=== PATIENT | male | born 1965 | race Caucasian/White ===

== ENCOUNTER → 2020-04-19 13:12 | Outpatient (CLI) | payer MEDICAID, SELFPAY ==
[2020-04-21 12:52] LABS: COVID19 Sendout Not Detected
== END ==
PROVIDERS: PCP Physician Assistant; Visit Provider Physician Assistant
DX: Z03.818 Encounter for observation for suspected exposure to other biological agents ruled out (principal)
CPT/HCPCS: 87635

== ENCOUNTER 2020-04-22 10:24 | Day surgery (SDC) | payer MEDICAID, SELFPAY ==
--- NOTE | 2020-04-22 | PATH_ITS ---
[facility] Accession Number: [id number] . 01 Material submitted: . rectum - RECTUM . 02 Diagnosis: Rectum, Biopsy: Colorectal mucosa with features of mucosal prolapse. Negative for active or microscopic colitis. Negative for granulomata, dysplasia or malignancy. MRV 04/24/2020 1018 Local . 02 Electronically signed: . Carlos Hood MD, PhD, Pathologist NPI- [id number] . 01 Gross description: . RECTUM: Received in formalin are 3 fragment(s) of johnson, soft tissue measuring 0.3 x 0.3 x 0.2 cm to 0.2 x 0.2 x 0.1 cm submitted entirely in 1 cassette(s) /QBJ 04/23/2020 0725 Local . 02 Pathologist provided ICD-10: R10.9, K62.3 . 02 CPT . 619520 Performed at: 01 [facility] [address], [place], [place] [id number] MD Buddy De Dios MD Phone: [phone] Performed at: [address] [facility] [place] [address] [place], [place] [id number] MD Tomasa Bridges MD Phone: [phone]
[2020-04-22 10:43] VITALS: BMI 30.2
[2020-04-22] MEDS: LACTATED RINGERS 1,000 ML 200 ML IV (10:52)
--- NOTE | 2020-04-22 11:40 | PM.PREOP ---
Pre-operative Note COVID-19 COVID-19 status: Negative Interval Note History & Physical reviewed/Exam performed by Physician: Yes Changes to H&P: No
[2020-04-22] MEDS: MIDAZOLAM 5 MG/5 ML VIAL IV (11:48)
[2020-04-22] MEDS: fentaNYL 250 MCG/5 ML INJ IV (11:50)
--- NOTE | 2020-04-22 12:10 | PM.OP.ENDO ---
Operative Date/Time/Diagnoses Date of procedure: 04/22/20 Time of procedure: 12:10 Pre-op diagnosis: screening colonoscopy Post-op diagnosis: same Procedure & Clinicians Study performed: colonoscopy Same procedure as scheduled: Yes Indications: 54-year-old man no prior colonoscopy presents with diarrhea hematochezia weight loss Surgeon: Mustapha Small Procedure Notes SCOAP/Timeout: Performed Procedure in detail: Patient placed in left lateral recumbent position. Time out was performed. Procedural sedation was administered with Versed and Fentanyl. Examination began with a thorough inspection of the perianal area there was no evidence of fissures, fistulae, external hemorrhoids or cutaneous malignancy. The colonoscopy scope was then placed into the rectum the the lumen was insufflated with air. The scope was carefully advanced forward. Ultimately the cecum was intubated and confirmed by identification of the ileocecal valve, the appendiceal orifice and the confluence of the taenia. The scope was then slowly withdrawn examining colon thoroughly in all directions. In the rectum the rectal columns were identified and retroflexion of the scope was performed for inspection of the distal rectum and anal canal. The colonoscopy was notable for the followin. Quality of the preparation-fair 2. No masses polyps 3. Mild proctitis of the distal rectum. Multiple biopsies were taken using the biopsy forceps. Hemostasis was observed. Scope withdrawal time: 12 Sedation minutes: 27 Findings: colitis (of distal rectum) Specimen(s): other (rectum) Complications: none Impression: Proctitis Post-procedure Recommendations: Will call with biopsy results Disposition: same day surgery
[2020-04-22 12:13] VITALS: BP 131/81; PULSE 75; RESP 16; TEMP 36.6; O2SAT 96
[2020-04-22 12:18] VITALS: BP 119/76; PULSE 88; RESP 14; O2SAT 95
[2020-04-22 12:23] VITALS: BP 138/97; PULSE 79; RESP 17; O2SAT 97
[2020-04-22 12:28] VITALS: BP 148/116; PULSE 77; RESP 16; O2SAT 96
[2020-04-22 12:32] VITALS: BP 148/99; PULSE 81; RESP 13; TEMP 36.8; O2SAT 96
== END 2020-04-22 12:55 | disposition home or self-care (01) ==
PROVIDERS: PCP Physician Assistant; Referring Provider Physician Assistant; Visit Provider Surgery
PROC: 0DJD8ZZ Inspection of Lower Intestinal Tract, Via Natural or Artificial Opening Endoscopic (ICD-10-PCS; CPT 45378; principal; 2020-04-22 11:30)
DX: K62.89 Other specified diseases of anus and rectum (principal); K62.3 Rectal prolapse; R63.4 Abnormal weight loss; J44.9 Chronic obstructive pulmonary disease, unspecified; F17.210 Nicotine dependence, cigarettes, uncomplicated
CPT/HCPCS: 45380; 99152; J2250; J3010

== ENCOUNTER 2020-05-26 12:18 | Emergency (ER) | payer MEDICAID, SELFPAY ==
[2020-05-26 12:30] VITALS: BP 174/107; PULSE 93; RESP 20; O2SAT 97
[2020-05-26] MEDS: KETOROLAC 60 MG/2 ML VIAL 30 MG IM (13:20)
--- NOTE | 2020-05-26 13:28 | PC.NURSE ---
pt due to have tooth extraction on L side 05/30/2020, here c/o unrelievable pain and swelling on L side of face
[2020-05-26 13:40] VITALS: BP 160/96; PULSE 82; RESP 18; O2SAT 97
--- NOTE | 2020-05-26 14:10 | ED.DENTAL ---
HPI - Dental/Oral <NHAN Kwok - Last Filed: 05/26/20 14:16> General Chief complaint: Dental/Oral Stated complaint: Left Sided Facial Pain Time Seen by Provider: 05/26/20 12:59 Source: patient Mode of arrival: Ambulatory Limitations: no limitations History of Present Illness HPI Narrative: The patient is a 54-year-old male current smoker with history of dental abscess who presents with a chief complaint of pain related to dental abscess. He denies any fevers nausea vomiting or diarrhea. He states he has been using Tylenol for pain, which is not cutting it and he is requesting stronger pain medicine for this. He states he is scheduled to have his tooth pulled later this week. He has been on clindamycin for the past few days. Related Data Home Medications Medication Instructions Recorded Confirmed metoprolol succinate 25 mg capsule 25 mg PO DAILY 04/17/20 04/22/20 sprinkle, ext. release 24 hr Previous Rx's Medication Instructions Recorded hydrocodone-acetaminophen [Franklin] 1 tab PO Q4-6H PRN #12 tab 05/26/20 ketorolac 10 mg PO TID PRN #14 tab 05/26/20 Allergies Allergy/AdvReac Type Severity Reaction Status Date / Time No Known Drug Allergies Allergy Verified 04/22/20 10:38 Review of Systems <PIYUSH Kwok - Last Filed: 05/26/20 14:16> Review of Systems Narrative: GENERAL: Denies chills, fatigue, malaise, fever, sweats. HEENT: See HPI RESPIRATORY: Denies dyspnea, cough, wheezing, hemoptysis, sputum. CARDIOVASCULAR: Denies chest pain, palpitations, orthopnea, edema, GASTROINTESTINAL: Denies nausea, vomiting, abdominal pain, diarrhea, constipation, melena. : Denies dysuria, frequency, incontinence, hematuria, urinary retention. MUSCULOSKELETAL: denies weakness, joint pain, or bony pain SKIN: Denies rash, skin lesions, or other NEUROLOGIC: Denies weakness, headache, numbness, change in speech, confusion, seizures, incoordination. PSYCHIATRIC: No concerning psychosocial issues. 12 point review of systems is negative except for those stated above Patient History <NHAN Kwok - Last Filed: 05/26/20 14:16> Medical History Afib (Acute) Anxiety (Acute) Asthma (Acute) COPD (chronic obstructive pulmonary disease) (Acute) Cough (Acute) Seizure (Acute) Suspected sleep apnea (Acute) Surgical History Hx of Achilles tendon repair (Acute) Hx of neck surgery (Acute) Social History marital status: unknown household members: none Smoking Status: Current every day smoker alcohol intake: current substance use type: does not use Smoking Status: Current every day smoker alcohol intake frequency: a few times a week Substance Use Type: does not use Exam <NHAN Kwok - Last Filed: 05/26/20 14:16> Narrative Exam Narrative: GENERAL: This is a well-nourished, well-developed patient, in no acute distress HEAD: Atraumatic. Normocephalic. No temporal or scalp tenderness. EYES: Pupils equal round and reactive. Extraocular motions intact. No scleral icterus. No injection or drainage. ENT: Nose without bleeding, purulent drainage or septal hematoma. Throat without erythema, tonsillar hypertrophy or exudate. Uvula midline. Airway patent. Palpable dental abscess on left side middle upper molar. Poor dentition noted. NECK: Trachea midline. No JVD or lymphadenopathy. Supple, nontender, no meningeal signs. CARDIOVASCULAR: Regular rate and rhythm RESPIRATORY: Clear to auscultation. Breath sounds equal bilaterally. No wheezes, rales, or rhonchi. No cough. No increased respiratory effort. No accessory muscle use. GASTROINTESTINAL: Abdomen soft, non-tender, nondistended. No hepato-splenomegaly, or palpable masses. No guarding. Active bowel sounds all 4 quadrants. EXTREMITIES: No clubbing, cyanosis, or edema. No joint tenderness, effusion, or edema noted. BACK: Nontender without deformity or crepitance. No flank tenderness. NEURO: AOx3. SKIN: No rash or erythema on visible skin. No overlying erythema or pustules noted Initial Vital Signs Initial Vital Signs: Vital Signs Pulse Rate 93 H 05/26/20 12:30 Respiratory Rate 20 05/26/20 12:30 Blood Pressure 174/107 H 05/26/20 12:30 Pulse Oximetry 97 05/26/20 12:30 <Janeth Merrill DO - Last Filed: 05/26/20 17:09> Initial Vital Signs Initial Vital Signs: Vital Signs Pulse Rate 93 H 05/26/20 12:30 Respiratory Rate 20 05/26/20 12:30 Blood Pressure 174/107 H 05/26/20 12:30 Pulse Oximetry 97 05/26/20 12:30 Scores <NHAN Kwok - Last Filed: 05/26/20 14:16> GCS Wendy coma scale eye opening: Spontaneous Lima coma scale verbal response: Orientated Lima coma scale motor response: Obey commands Lima coma scale total score: 15 Course <NHAN Kwok - Last Filed: 05/26/20 14:16> Orders Ordered: Discontinued Medications Ketorolac Tromethamine (Toradol) 30 mg IM NOW ONE Stop: 05/26/20 13:17 Last Admin: 05/26/20 13:20 Dose: 30 mg Documented by: MMINOR Vital Signs Vital signs: Vital Signs - 8 hr 05/26/20 12:30 05/26/20 13:40 Pulse Rate 93 H 82 Respiratory Rate 20 18 Blood Pressure 174/107 H 160/96 H Pulse Oximetry 97 97 <Janeth Merrill DO - Last Filed: 05/26/20 17:09> Orders Ordered: Discontinued Medications Ketorolac Tromethamine (Toradol) 30 mg IM NOW ONE Stop: 05/26/20 13:17 Last Admin: 05/26/20 13:20 Dose: 30 mg Documented by: MMINOR Vital Signs Vital signs: Vital Signs - 8 hr 05/26/20 12:30 05/26/20 13:40 Pulse Rate 93 H 82 Respiratory Rate 20 18 Blood Pressure 174/107 H 160/96 H Pulse Oximetry 97 97 MDM - Dental/Oral <NHAN Kwok - Last Filed: 05/26/20 14:16> MDM Narrative Medical decision making narrative: The patient is a 54-year-old male current smoker presents with a chief complaint of continued dental pain with his antibiotic therapy. He states he has been able to sleep since his clindamycin started 3 days ago. Denies any signs of systemic illness, is taking his medication appropriately it is requesting pain medicine. He was given Toradol in the emergency department I sent a prescription of this in. He is also requesting ?20 or so Vicodin. I discussed that I cannot give a prescription that long in the emergency department, but I am willing to give a small prescription to help get him through the next few days. I consulted [facility] prescription database prior to prescribing and there was no controlled substance prescriptions for the patient for the past year. Encouraged follow-up with dentist in the next few days as well as primary care provider. Patient was given information regarding constipation, discussed taking Toradol food and not combining with any other NSAIDs. Patient has no questions or concerns upon discharge and states understanding return precautions as well as follow-up care. Discharge Plan Departure Patient Disposition: Home Clinical Impression: Dental abscess Discharge Date/Time: 05/26/20 13:41 Instructions: DI for Dental Pain Activity Restrictions/Additional Instructions: Thank you for trusting us with your care today. Please continue taking the antibiotic that was prescribed by an outside provider. Please follow-up with her dentist and her primary care provider I sent 2 pain medication prescriptions to [facility] in [place] I have given you a prescription of Toradol. This is an NSAID. Do not combine it with other NSAIDs such as Aleve or ibuprofen. I suggest taking it with some food, as it can irritate your stomach. I have given you a prescription of a narcotic for pain. Be aware that this can be constipating and sedating. I encouraged taking with a stool softener, pushing fluids and fiber. Do not take and drive, operate heavy machinery, etc. Do not combine it with any other sedating substances such as alcohol. Please come back to emergency department for any acute concerns such as high fevers etcetera Prescriptions: New ketorolac 10 mg tablet 10 mg PO TID PRN (Reason: pain) Qty: 14 RF: 0 hydrocodone-acetaminophen [Franklin] 5-325 mg tablet 1 tab PO Q4-6H PRN (Reason: pain) Qty: 12 RF: 0 No Action metoprolol succinate 25 mg capsule,sprinkle,ER 24hr 25 mg PO DAILY RF: 0 Referrals: Oralia Carney PA-C [Primary Care Provider] - <Janeth Merrill DO - Last Filed: 05/26/20 17:09> Cosign ED Attending Cosignature Attestation: I was immediately available in the department for consultation. Documentation has been reviewed. I agree with assessment and plan.
== END 2020-05-26 13:41 | disposition home or self-care (01) ==
PROVIDERS: Emergency Provider Nurse Practitioner Family; PCP Physician Assistant
DX: K04.7 Periapical abscess without sinus (principal)
CPT/HCPCS: 96372; 99281; 99283; J1885

== ENCOUNTER 2020-09-23 13:48 | Emergency (ER) | payer MEDICAID, SELFPAY ==
[2020-09-23] VITALS (28 sets, daily range): BP systolic 144–189; BP diastolic 84–117; PULSE 81–152; RESP 12–34; TEMP 36.9; O2SAT 95–100; BMI 32.3
--- NOTE | 2020-09-23 14:04 | ED_ITS ---
HPI - Arrhythmia/Palpitations General Chief Complaint: Arrhythmia/Palpitations Stated Complaint: DIZZINESS, HEART PALPITATIONS Time Seen by Provider: 09/23/20 14:02 Source: patient Mode of arrival: Family Vehicle Limitations: no limitations History of Present Illness HPI narrative: Patient is a 55-year-old male with history of alcohol abuse and paroxysmal atrial fibrillation presenting today with sudden onset of p alpitations or 8:00 a.m.. He actually does take metoprolol twice a day for hypertension. He took a dose this morning around 530 and then another half a dose about 2 hours ago and continues to feel palpitations. He denies any dizziness lightheadedness shortness of with exertion or chest pain. MD complaint: rapid heart beat and heart racing Related Data Home Medications Medication Instructions Recorded Confirmed metoprolol succinate 50 mg PO QAM 09/23/20 09/23/20 Allergies Allergy/AdvReac Type Severity Reaction Status Date / Time No Known Drug Allergies Allergy Verified 09/23/20 14:04 Review of Systems Review of Systems Narrative: GENERAL: Denies chills, fatigue, malaise, fever, sweats, travel HEENT: Denies sinus pain, ear pain, sore throat, difficulty swallowing, neck pain RESPIRATORY: Denies dyspnea, cough, wheezing, hemoptysis, sputum. CARDIOVASCULAR: See HPI GASTROINTESTINAL: Denies nausea, vomiting, abdominal pain, diarrhea, constipation, melena. : Denies dysuria, frequency, incontinence, hematuria, urinary retention, flank pain. MUSCULOSKELETAL: Denies weakness, joint pain, or bony pain SKIN: No rash, no erythema, no pruritus NEUROLOGIC: Denies weakness, dizziness, headache, numbness, change in speech, confusion PSYCHIATRIC: No concerning psychosocial issues. 12 point review of systems is negative except for those stated above and HPI Patient History Medical History (Updated 09/23/20 @ 16:26 by Janeth Merrill DO) Afib Anxiety Asthma COPD (chronic obstructive pulmonary disease) Cough Seizure Suspected sleep apnea Surgical History Hx of Achilles tendon repair Hx of neck surgery Social History marital status: unknown household members: none Smoking Status: Current every day smoker alcohol intake: current substance use type: does not use Smoking Status: Current every day smoker tobacco type: cigarettes alcohol intake frequency: a few times a week Substance Use Type: does not use Exam Initial Vital Signs Initial Vital Signs: Vital Signs Temperature 98.4 F 09/23/20 13:52 Pulse Rate 152 H 09/23/20 13:52 Respiratory Rate 22 09/23/20 13:52 Blood Pressure 189/108 H 09/23/20 13:52 Pulse Oximetry 100 09/23/20 13:52 GENERAL: Alert pleasant 55-year-old male and in no acute distress. HEENT: Head atraumatic,EOMI, pupils reactive, face symmetric, moist mucous membranes CARDIOVASCULAR: Irregularly irregular tachycardic RESPIRATORY: Breath sounds equal bilaterally, no wheezes rales or rhonchi. ABDOMEN: Soft, nontender. Normoactive bowel sounds all 4 quadrants. No guarding or rebound. EXTREMITIES: Normal range of motion, no clubbing or edema. Neurovascularly intact NEUROLOGICAL: Alert and oriented x4.Normal gait and speech. SKIN: Warm, dry, no laceration, no petechiae, no rashes or lesions. Procedures Cardioversion Consent Signed: Yes Stability: Stable Number of attempts (shocks): 1 Joules used: 150 Cardiac rhythm post-cardioversion: sinus rhythm Procedural Sedation Consent signed: Yes Time out performed: Yes Indication: cardioversion ASA Class: III Mallampati Airway Classification: Class II Preparation: youth nutritional monitor applied, pulse oximeter, capnometry used and supplemental O2 applied IV Etomidate dose (mg): 10 Intraservice time/total sedation time (min): 12 ED Sedation Level: Moderate (Concious) Patient Tolerated Procedure: Well Additional Comments: Received morphine for pain afterwards Scores CHADS-VASc Congestive heart failure: no Hypertension: yes Age 75 years or older: no Diabetes mellitus: no Stroke, TIA, or TE: no Vascular disease: no Age 65 to 74 years: no Sex category (female): Male CHADS-VASc Score: 1 Course Orders Ordered: ED Orders 09/23/20 13:45 Complete Blood Count AUTO DIFF Stat 09/23/20 14:03 XR chest 1V Stat EKG-12 Lead Stat 09/23/20 14:07 COVID19 Stat 09/23/20 14:25 BNP [NT-proBNP (BNP-Adult 18+)] Stat Comprehensive Metabolic Panel Stat Ethanol (ETOH) Stat Lipase Stat Magnesium Stat Partial Thromboplastin Time Stat Prothrombin Time INR Stat Troponin & CK Cardiac Panel Stat Discontinued Medications Diltiazem HCl (Diltiazem 5 Mg/Ml Sdv) 10 mg IV NOW ONE Stop: 09/23/20 14:24 Last Admin: 09/23/20 14:34 Dose: 10 mg Documented by: TC Etomidate (Etomidate 2 Mg/Ml 10 Ml Vial) 10 mg IV NOW ONE Stop: 09/23/20 14:40 Last Admin: 09/23/20 15:10 Dose: 10 mg Documented by: TC Sodium Chloride (Normal Saline 0.9%) 1,000 mls @ 125 mls/hr IV BOLUS ONE Stop: 09/23/20 22:27 Last Admin: 09/23/20 14:34 Dose: 125 mls/hr Documented by: TC Vital Signs Vital signs: Vital Signs - 8 hr 09/23/20 13:52 09/23/20 13:54 09/23/20 13:57 Temperature 98.4 F Pulse Rate 152 H 151 H 140 H Respiratory Rate 22 16 15 Blood Pressure 189/108 H 189/108 H Blood Pressure [Left Arm] Pulse Oximetry 100 99 100 09/23/20 14:00 09/23/20 14:10 09/23/20 14:11 Temperature Pulse Rate 144 H 148 H 145 H Respiratory Rate 16 19 18 Blood Pressure 165/104 H 163/97 H Blood Pressure [Left Arm] Pulse Oximetry 100 98 99 09/23/20 14:20 09/23/20 14:21 09/23/20 14:29 Temperature Pulse Rate 127 H 132 H 144 H Respiratory Rate 13 15 22 Blood Pressure 168/117 H Blood Pressure [Left Arm] Pulse Oximetry 97 97 99 09/23/20 14:30 09/23/20 14:40 09/23/20 14:41 Temperature Pulse Rate 146 H 115 H 111 H Respiratory Rate 15 20 17 Blood Pressure 169/117 H 160/96 H Blood Pressure [Left Arm] Pulse Oximetry 97 98 97 09/23/20 14:49 09/23/20 14:50 09/23/20 15:00 Temperature Pulse Rate 102 H 100 H 113 H Respiratory Rate 14 14 13 Blood Pressure 157/94 H 155/84 H Blood Pressure [Left Arm] Pulse Oximetry 97 96 98 09/23/20 15:10 09/23/20 15:17 09/23/20 15:19 Temperature Pulse Rate 123 H 93 H 113 H Respiratory Rate 15 18 13 Blood Pressure 165/109 H 178/105 H Blood Pressure [Left Arm] 155/84 H Pulse Oximetry 97 97 98 09/23/20 15:20 09/23/20 15:22 09/23/20 15:30 Temperature Pulse Rate 85 84 83 Respiratory Rate 16 20 13 Blood Pressure 162/105 H 166/106 H Blood Pressure [Left Arm] Pulse Oximetry 98 97 09/23/20 15:40 09/23/20 15:50 09/23/20 16:00 Temperature Pulse Rate 81 85 86 Respiratory Rate 16 12 19 Blood Pressure 163/100 H 155/97 H 149/94 H Blood Pressure [Left Arm] Pulse Oximetry 96 95 95 09/23/20 16:10 09/23/20 16:20 09/23/20 16:30 Temperature Pulse Rate 87 86 94 H Respiratory Rate 19 18 34 H Blood Pressure 144/90 H 144/87 H Blood Pressure [Left Arm] Pulse Oximetry 95 96 97 09/23/20 16:31 Temperature Pulse Rate 95 H Respiratory Rate Blood Pressure 171/112 H Blood Pressure [Left Arm] Pulse Oximetry 96 MDM - Arrhythmia/Palpitations Lab Data Attestation: I reviewed the patient's lab results. Result diagrams: 09/23/20 13:45 09/23/20 14:25 Labs: Lab Results 09/23/20 09/23/20 09/23/20 Range/Units 13:45 14:07 14:25 WBC 9.3 (4.5-11.0) X10^3/uL RBC 5.74 (4.5-5.9) X10^6/uL Hgb 19.0 H (13.5-17.5) g/dL Hct 54.9 H (41-53) % MCV 95.6 (80-100) fL MCH 33.0 (26-34) PG MCHC 34.5 (30-36) % RDW 14.4 (11.6-14.8) % Plt Count 176 (150-400) X10^3/uL Neut % (Auto) 47.1 L (50-75) % Lymph % (Auto) 35.9 (25-40) % [place] % (Auto) 13.9 (3-14) % Eos % (Auto) 2.1 (2-4) % Baso % (Auto) 1.0 (0-2) % Neut # (Auto) 4400 (1395-0550) /uL Lymph # (Auto) 3300 (2158-4972) /uL [place] # (Auto) 1300 H (0-900) /uL Eos # (Auto) 200 (0-450) /uL Baso # (Auto) 100 (0-100) /uL PT 12.4 (10.1-12.7) SECONDS INR 1.1 (0.9-1.3) APTT 39 H (26.4-36.2) SECONDS Sodium (137-145) mmol/L Potassium (3.4-5.1) mmol/L Chloride (98-107) mmol/L Carbon Dioxide (22-32) mmol/L BUN (9-20) mg/dL Creatinine (0.66-1.25) mg/dL Estimated GFR (>60) mL/min BUN/Creatinine Ratio (6-22) Glucose (70-100) mg/dL Calcium (8.4-10.2) mg/dL Magnesium (1.6-2.3) mg/dL Total Bilirubin (0.2-1.3) mg/dL AST (17-59) IU/L ALT (<50) IU/L Alkaline Phosphatase (38-126) U/L Total Creatine Kinase (55-170) U/L CK-MB (CK-2) (<2.37) ng/mL CK-MB (CK-2) Rel Index (1.5-5.0) % Troponin I (0.01-0.034) ng/mL NT-Pro-B Natriuret Pep (<125) pg/mL Total Protein (6.3-8.2) g/dL Albumin (3.5-5.0) g/dL Globulin (1.7-4.1) g/dL Albumin/Globulin Ratio (1.0-2.8) Lipase (23-300) U/L Ethyl Alcohol ( - 10) mg/dL SARS-CoV-2 (PCR) Negative (Negative) 09/23/20 09/23/20 Range/Units 14:25 14:25 WBC (4.5-11.0) X10^3/uL RBC (4.5-5.9) X10^6/uL Hgb (13.5-17.5) g/dL Hct (41-53) % MCV (80-100) fL MCH (26-34) PG MCHC (30-36) % RDW (11.6-14.8) % Plt Count (150-400) X10^3/uL Neut % (Auto) (50-75) % Lymph % (Auto) (25-40) % [place] % (Auto) (3-14) % Eos % (Auto) (2-4) % Baso % (Auto) (0-2) % Neut # (Auto) (7924-1217) /uL Lymph # (Auto) (3353-0880) /uL [place] # (Auto) (0-900) /uL Eos # (Auto) (0-450) /uL Baso # (Auto) (0-100) /uL PT (10.1-12.7) SECONDS INR (0.9-1.3) APTT (26.4-36.2) SECONDS Sodium 138 (137-145) mmol/L Potassium 4.1 (3.4-5.1) mmol/L Chloride 103 (98-107) mmol/L Carbon Dioxide 24 (22-32) mmol/L BUN 10 (9-20) mg/dL Creatinine 0.82 (0.66-1.25) mg/dL Estimated GFR > 60.0 (>60) mL/min BUN/Creatinine Ratio 12.2 (6-22) Glucose 106 H (70-100) mg/dL Calcium 9.7 (8.4-10.2) mg/dL Magnesium 1.7 (1.6-2.3) mg/dL Total Bilirubin 0.7 (0.2-1.3) mg/dL AST 66 H (17-59) IU/L ALT 101 H (<50) IU/L Alkaline Phosphatase 61 (38-126) U/L Total Creatine Kinase 224 H (55-170) U/L CK-MB (CK-2) 1.79 (<2.37) ng/mL CK-MB (CK-2) Rel Index 0.8 L (1.5-5.0) % Troponin I < 0.012 (0.01-0.034) ng/mL NT-Pro-B Natriuret Pep 279 H (<125) pg/mL Total Protein 8.3 H (6.3-8.2) g/dL Albumin 4.9 (3.5-5.0) g/dL Globulin 3.4 (1.7-4.1) g/dL Albumin/Globulin Ratio 1.4 (1.0-2.8) Lipase 71 (23-300) U/L Ethyl Alcohol 43 H ( - 10) mg/dL SARS-CoV-2 (PCR) (Negative) Imaging Data Chest x-ray: Radiologist's Impresson: PROCEDURE: XR CHEST 1V INDICATIONS: chest pain TECHNIQUE: One view of the chest was acquired. COMPARISON: None. FINDINGS: Surgical changes and devices: None. Lungs and pleura: Lungs are clear. No pleural effusions or pneumothorax. Mediastinum: Mediastinal contours appear normal. Heart size is mildly prominent. Bones and chest wall: No suspicious bony lesions. Overlying soft tissues appear unremarkable. IMPRESSION: No acute pulmonary process. Dictated by: Avelina Bro M.D. on 09/23/2020 at 14:31 ECG Data Attestation: I personally reviewed and interpreted this ECG as follows: Interpretation: Atrial fibrillation rate [address] changes her T-wave inversions EKG 2. Normal sinus rhythm rate [address] changes MDM Narrative Medical decision making narrative: Patient does not remember procedure is remains in normal sinus rhythm and has a ride home. Recommend aspirin 81 mg once a day. Also discussed with him decreasing his drinking habits. He states he is are ready been decreasing and would like to eventually stop. Discharge Plan Departure Patient Disposition: Home Clinical Impression: Atrial fibrillation Qualifiers: Atrial fibrillation type: paroxysmal Qualified Code(s): I48.0 - Paroxysmal atrial fibrillation Instructions: DI for Atrial Fibrillation Activity Restrictions/Additional Instructions: *You have been diagnosed with paroxysmal atrial fibrillation *What to do: At this time I do believe that alcohol is related to your atrial fibrillation. I recommend that he cut back slowly, the do not go into withdrawals. *Continue to take medications as directed Aspirin 81 mg once daily Continue metoprolol *Follow up with your primary care provider in 2-3 days *Return to ER if you should have chest pain shortness of breath palpitations dizziness lightheadedness or any new, worsening or concerning symptoms Prescriptions: No Action metoprolol succinate 50 mg tablet extended release 24 hr 50 mg PO QAM RF: 0 Referrals: Oralia Carney PA-C [Primary Care Provider] -
[2020-09-23 14:11] LABS: Add Manual Diff / Slide Review NO; Basophils Absolute Auto 100 /uL (0-100); Eosinophils Absolute Auto 200 /uL (0-450); Eosinophils Percent Auto 2.1 % (2-4); Hematocrit 54.9 % (41-53); Lymphocytes Absolute Auto 3300 /uL (1100-4500); Lymphocytes Percent Auto 35.9 % (25-40); Mean Corpuscular HGB Conc 34.5 % (30-36); Mean Corpuscular Volume 95.6 fL (80-100); Monocytes Absolute Auto 1300 /uL (0-900); Monocytes Percent Auto 13.9 % (3-14); Neutrophils Absolute Auto 4400 /uL (1500-7000); Neutrophils Percent Auto 47.1 % (50-75); Platelet Count 176 X10^3/uL (150-400); Red Blood Cell Count 5.74 X10^6/uL (4.5-5.9); Red Cell Distribution Width 14.4 % (11.6-14.8); White Blood Cell Count 9.3 X10^3/uL (4.5-11.0)
[2020-09-23] MEDS: dilTIAZem 5 MG/ML SDV 10 MG IV (14:34)
[2020-09-23] MEDS: SODIUM CHLORIDE 0.9% 1,000 ML 125 ML IV (14:34)
[2020-09-23 14:35] LABS: COVID19 -Nasal RAPID Negative (Negative)
[2020-09-23 14:36] LABS: INR 1.1 (0.9-1.3); Prothrombin Time 12.4 SECONDS (10.1-12.7)
[2020-09-23 14:38] LABS: PTT Partial Thromboplastin Tim 39 SECONDS (26.4-36.2)
[2020-09-23 14:41] LABS: Alanine Aminotransferase 101 IU/L (<50); Albumin 4.9 g/dL (3.5-5.0); Albumin Globulin Ratio 1.4 (1.0-2.8); Alkaline Phosphatase 61 U/L (38-126); Aspartate Aminotransferase 66 IU/L (17-59); BUN Creatinine Ratio 12.2 (6-22); Bilirubin Total 0.7 mg/dL (0.2-1.3); Blood Urea Nitrogen 10 mg/dL (9-20); Calcium 9.7 mg/dL (8.4-10.2); Carbon Dioxide 24 mmol/L (22-32); Chloride 103 mmol/L (98-107); Creatine Kinase 224 U/L (55-170); Estimated Glomerular Filt Rate > 60.0 mL/min (>60); Globulin 3.4 g/dL (1.7-4.1); Glucose 106 mg/dL (70-100); HEMOLYSIS 20 (0-50); Lipase 71 U/L (23-300); Magnesium 1.7 mg/dL (1.6-2.3); Potassium 4.1 mmol/L (3.4-5.1); Sodium 138 mmol/L (137-145); Total Protein 8.3 g/dL (6.3-8.2)
[2020-09-23 14:42] LABS: Ethanol (ETOH) 43 mg/dL
[2020-09-23 14:52] LABS: NT-proBNP (BNP-Adult 18+) 279 pg/mL (<125); Troponin I < 0.012 ng/mL (0.01-0.034)
[2020-09-23 15:06] LABS: CKMB % Relative Index 0.8 % (1.5-5.0); Creatine Kinase MB 1.79 ng/mL (<2.37)
[2020-09-23] MEDS: ETOMIDATE 2 MG/ML 10 ML VIAL 10 MG IV (15:10)
[2020-09-23] MEDS: MORPHINE 4 MG/ML INJ (15:13)
--- NOTE | 2020-10-07 14:06 | PC.NURSE ---
Late entry: IV NS started at 1434 discontinued at 1638 hrs.
== END 2020-09-23 16:42 | disposition home or self-care (01) ==
PROVIDERS: Emergency Provider Emergency Medicine; PCP Physician Assistant
DX: I48.0 Paroxysmal atrial fibrillation (principal); I10 Essential (primary) hypertension
CPT/HCPCS: 36415; 71045; 80053; 80320; 82550; 82553; 83690; 83735; 83880; 84484; 85025; 85610; 85730; 87635; 92960; 93005; 93010; 96361; 96374; 96375; 99152; 99285; C9803; J2270

== ENCOUNTER → 2023-08-26 13:36 | Outpatient (CLI) | payer OTHER, SELFPAY ==
--- NOTE | 2023-08-26 | DI.RAD.S_ITS ---
PROCEDURE: XR CHEST 2V INDICATIONS: subacute cough TECHNIQUE: 2 views of the chest were acquired. COMPARISON: [facility], CR, XR CHEST 1V, 09/23/2020, 14:08. FINDINGS: Surgical changes and devices: None. Lungs and pleura: Lungs are clear. No pleural effusions or pneumothorax. Mediastinum: Mediastinal contours are normal. Heart size is normal. Bones and chest wall: No suspicious bony abnormalities. Soft tissues appear unremarkable. IMPRESSION: No acute cardiopulmonary process. Dictated by: Vilma Duarte M.D. on 08/26/2023 at 14:48 Approved by: Vilma Duarte M.D. on 08/26/2023 at 14:48
== END ==
PROVIDERS: PCP Family Medicine; Referring Provider Family Medicine; Visit Provider Family Medicine
DX: R05.2 Subacute cough (principal)
CPT/HCPCS: 71046

== ENCOUNTER → 2024-01-05 06:58 | Outpatient (CLI) | payer OTHER, SELFPAY ==
--- NOTE | 2024-01-05 06:59 | DI.ECHO.S_ITS ---
[facility] : : [address] : : [place] : : [address] : : Phone: [phone] Echocardiogram Report + + :Name: LIOR WARREN Study Date: 01/05/2024 Height: 70 in : :Hospital ReadingLocation: Weight: 225 lb : : Gender: Male BSA: 2.2 m2 : :: 1965 Age: 58 yrs BP: 147/95 mmHg: :Reason For Study: ATRIAL FIBRILLATION : :Ordering Physician: MARITZA, : :BARAK Performed By: Adia Reynoso : :Referring: BARAK SALAS : + + Interpretation Summary The left ventricle is normal in size and wall thickness. The left ventricular ejection fraction is normal. LVEF 60 to 65%. The right ventricle is normal in size and function. No significant valvular pathology seen. Procedure: A two-dimensional transthoracic echocardiogram with color flow and Doppler was performed. The study quality was technically adequate. There is no prior echocardiogram noted for this patient. The patient was in sinus rhythm with heart rates between 63-77 bpm during the exam. Left Ventricle: The left ventricle is normal in size and wall thickness. There is no thrombus. The ejection fraction is estimated to be 60-65%. The left ventricular ejection fraction is normal. There are no focal wall motion abnormalities. MV E/A: 1.1 Med Peak E' Severo: 8.1 cm/sec E/E' med: 9.0. Right Ventricle: The right ventricle is normal in size and function. Atria: The left atrial size is normal. Right atrial size is normal. There is no Doppler evidence for an interatrial shunt. Mitral Valve: The mitral valve is normal in structure and function. There is trace mitral regurgitation. Aortic Valve: The aortic valve is trileaflet. The aortic valve opens well. There is no aortic valve stenosis. No aortic regurgitation is present. Tricuspid Valve: The tricuspid valve is normal in structure and function. There is trace tricuspid regurgitation. Pulmonary artery pressures cannot be estimated because of the lack of a measurable TR jet velocity. Pulmonic Valve: The pulmonic valve leaflets are thin and pliable; valve motion is normal. There is trace pulmonic regurgitation. Great Vessels: The aortic root is normal size. The dimensions of the ascending aorta are normal. The inferior vena cava was not well visualized. Pericardium/ Pleura There is no pericardial effusion. There is no pleural effusion. MMode/2D Measurements & Calculations LVIDd: 4.9 cm LVOT diam: 2.2 cm LVIDs: 3.1 cm Ao root diam: 3.6 cm FS: 35.7 % asc Aorta Diam: 3.6 cm EPSS: 0.71 cm Ao Arch Diam (Prox Trans): 3.2 cm IVSd: 0.94 cm LVPWd: 1.1 cm LV landa. diameter/BSA (cm/m^2): 2.2 LV sys. diameter/BSA (cm/m^2): 1.4 LA A2 area: 19.7 cm2 RA long axis: 5.9 cm LA A4 area: 15.6 cm2 RA area: 17.0 cm2 LA length (vol): 5.5 cm RA vol: 42.0 ml LA vol: 47.4 ml RA : 19.2 ml/m2 LA vol index: 21.6 ml/m2 RVD1 (basal): 4.0 cm TAPSE: 1.9 cm Doppler Measurements & Calculations Ao V2 max: 174.6 cm/sec LVOT Max Severo: 97.9 cm/sec Ao V2 mean: 120.3 cm/sec LV V1 max P.8 mmHg Ao max P.2 mmHg LV V1 VTI: 20.2 cm Ao mean P.6 mmHg LESVIA(I,D): 2.2 cm2 Ao V2 VTI: 36.2 cm LESVIA(V,D): 2.2 cm2 sev ratio: 0.56 LESVIA indexed to BSA (cm^2/m^2): 0.99 MV E max severo: 73.0 cm/sec PA V2 max: 104.0 cm/sec MV A max severo: 67.2 cm/sec PA V2 mean: 72.5 cm/sec MV E/A: 1.1 PA mean P.4 mmHg Med Peak E' Severo: 8.1 cm/sec PA pr(Accel): 46.5 mmHg E/E' med: 9.0 Lat Peak E' Severo: 12.6 cm/sec E/E' lat: 5.8 E/e' average: 7.4 MV dec time: 0.25 sec SV(LVOT): 78.8 ml Reading Physician:02:19 PM
== END ==
LOC: ECHO 06:59
PROVIDERS: PCP Family Medicine; Referring Provider Family Medicine; Visit Provider Family Medicine
DX: I48.0 Paroxysmal atrial fibrillation (principal)
CPT/HCPCS: 93306

== ENCOUNTER 2025-01-15 10:39 | Emergency (ER) | payer MEDICAID, SELFPAY ==
[2025-01-15] VITALS (10 sets, daily range): BP systolic 135–173; BP diastolic 78–98; PULSE 83–102; RESP 13–21; TEMP 36.7; O2SAT 92–97; BMI 34.2
--- NOTE | 2025-01-15 10:47 | ED.GENADULT ---
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 Patient denies fever, chills, active chest pain, shortness of breath, dyspnea on exertion, recent long distance travel, or or any history of DVT or PE. Other than what is stated 14 point review of system is negative. Related Data Home Medications ?Medication ?Instructions ?Recorded ?Confirmed metoprolol succinate 50 mg 50 mg PO QAM 09/23/20 09/23/20 tablet,extended release 24 hr Previous Rx's ?Medication ?Instructions ?Recorded furosemide 40 mg tablet (Lasix) 40 mg PO DAILY #2 tabs 01/15/25 Allergies Allergy/AdvReac Type Severity Reaction Status Date / Time No Known Drug Allergies Allergy Verified 01/15/25 10:51 Review of Systems Review of Systems ROS Unobtainable: All systems reviewed & are unremarkable except as noted in HPI and below Patient History Medical History (Updated 01/15/25 @ 13:58 by Jaya Restrepo DO) Anxiety Seizure Cough Suspected sleep apnea Afib COPD (chronic obstructive pulmonary disease) Asthma Surgical History Hx of Achilles tendon repair Hx of neck surgery Social History marital status: unknown household members: none Smoking Status: Current every day smoker alcohol intake: current substance use type: does not use tobacco type: cigarettes alcohol intake frequency: a few times a week Exam Narrative Exam Narrative: GENERAL: [59] year old patient appears stated age. Well-developed patient, in mild distress. HEAD: Atraumatic. Normocephalic. EYES: Pupils equal round and reactive. Extraocular motions intact. No scleral icterus. No injection or drainage. NECK: Trachea midline. Non tender CARDIOVASCULAR: Regular rate and rhythm without murmurs, gallops, or rubs. RESPIRATORY: Clear to auscultation. Breath sounds equal bilaterally. No wheezes, rales, or rhonchi. GASTROINTESTINAL: Abdomen soft, non-tender, nondistended. EXTREMITIES: +1 b/l pretibial edema or joint tenderness. BACK: Nontender without deformity or crepitance. No flank tenderness. NEURO: AOx3. SKIN: No rash or erythema of visible areas Initial Vital Signs Initial Vital Signs: Vital Signs Temperature 98.0 F 01/15/25 10:45 Pulse Rate 94 H 01/15/25 10:45 Respiratory Rate 20 01/15/25 10:45 Blood Pressure 135/86 01/15/25 10:45 Pulse Oximetry 94 01/15/25 10:45 Oxygen Delivery Method Room Air 01/15/25 10:45 Course Orders Ordered: ED Orders 01/15/25 10:50 Complete Blood Count AUTO DIFF Stat Comprehensive Metabolic Panel Stat Lipase Stat Magnesium Stat NT-proBNP (BNP-Adult 18+) Stat PTT Partial Thromboplastin Se Stat Prothrombin Time INR Stat Troponin & CK Cardiac Panel Stat 01/15/25 11:02 XR chest 1V Stat EKG-12 Lead Stat 01/15/25 13:02 Trop I [Troponin I] Stat 01/15/25 13:36 EKG-12 Lead Stat Discontinued Medications Furosemide (Furosemide 40 Mg/4 Ml Vial) 40 mg IV NOW ONE Stop: 01/15/25 11:17 Last Admin: 01/15/25 11:25 Dose: 40 mg Documented By: SB Vital Signs Vital signs: Vital Signs - 8 hr 01/15/25 10:45 01/15/25 11:12 01/15/25 11:30 Temperature 98.0 F Pulse Rate 94 H 83 86 Respiratory Rate 20 15 21 Blood Pressure 135/86 Pulse Oximetry 94 93 95 Oxygen Delivery Method Room Air 01/15/25 11:49 01/15/25 11:49 01/15/25 11:57 Temperature Pulse Rate 102 H Respiratory Rate 15 Blood Pressure 173/98 H 150/86 H Pulse Oximetry 95 Oxygen Delivery Method 01/15/25 11:57 01/15/25 12:00 01/15/25 12:00 Temperature Pulse Rate 86 83 Respiratory Rate 13 13 Blood Pressure 155/83 H Pulse Oximetry 96 94 Oxygen Delivery Method 01/15/25 12:30 01/15/25 12:30 01/15/25 12:42 Temperature Pulse Rate 84 98 H Respiratory Rate 16 17 Blood Pressure 143/78 H Pulse Oximetry 92 94 Oxygen Delivery Method 01/15/25 12:42 Temperature Pulse Rate Respiratory Rate Blood Pressure 169/93 H Pulse Oximetry Oxygen Delivery Method Medical Decision Making Lab Data 01/15/25 10:50 01/15/25 10:50 Labs: Lab Results 01/15/25 01/15/25 Range/Units 10:50 13:02 WBC 8.6 (4.5-11.0) X10^3/uL RBC 5.31 (4.5-5.9) X10^6/uL Hgb 17.2 (13.5-17.5) g/dL Hct 48.9 (41-53) % MCV 92.0 (80-100) fL MCH 32.4 (26-34) PG MCHC 35.3 (30-36) % RDW 13.1 (11.6-14.8) % Plt Count 184 (150-400) X10^3/uL Neut % (Auto) 65.4 (50-75) % Lymph % (Auto) 20.6 L (25-40) % [place] % (Auto) 11.3 (3-14) % Eos % (Auto) 1.8 L (2-4) % Baso % (Auto) 0.9 (0-2) % Neut # (Auto) 5600 (6932-0500) /uL Lymph # (Auto) 1800 (5188-2297) /uL [place] # (Auto) 1000 H (0-900) /uL Eos # (Auto) 200 (0-450) /uL Baso # (Auto) 100 (0-100) /uL PT 12.0 (9.4-12.5) SECONDS INR 1.1 (0.9-1.3) APTT 34 (25.1-36.5) SECONDS Sodium 137 (137-145) mmol/L Potassium 3.5 (3.4-5.1) mmol/L Chloride 102 (98-107) mmol/L Carbon Dioxide 25 (22-32) mmol/L BUN 10 (9-20) mg/dL Creatinine 0.74 (0.66-1.25) mg/dL Estimated GFR > 60 (>60) mL/min BUN/Creatinine Ratio 13.5 (6-22) Glucose 129 H (70-99) mg/dL Calcium 9.5 (8.4-10.2) mg/dL Magnesium 1.7 (1.6-2.3) mg/dL Total Bilirubin 0.9 (0.2-1.3) mg/dL AST 58 (17-59) IU/L ALT 52 H (<50) IU/L Alkaline Phosphatase 79 (38-126) U/L Total Creatine Kinase 133 (55-170) U/L Troponin I < 0.012 < 0.012 (0.01-0.034) ng/mL NT-Pro-B Natriuret Pep 62 (<125) pg/mL Total Protein 8.4 H (6.3-8.2) g/dL Albumin 4.9 (3.5-5.0) g/dL Globulin 3.5 (1.7-4.1) g/dL Albumin/Globulin Ratio 1.4 (1.0-2.8) Lipase 114 (23-300) U/L Imaging Data Chest x-ray: Radiologist's Impression: [address] [address] XRay Report Signed Patient: Venu Tavares MR#: [id number] : 1965 Acct:[id number] Age/Sex: 59 / M Date of Service: 01/15/25 Loc: ED Accession Number: [id number] Procedure: XR chest 1V Ordering Provider: Jaya Restrepo D.O. PROCEDURE: XR CHEST 1V INDICATIONS: Chest Pain TECHNIQUE: One view of the chest was acquired. COMPARISON: [facility], CR, XR CHEST 2V, 08/26/2023, 13:47. [facility], CR, XR CHEST 1V, 09/23/2020, 14:08. FINDINGS: Surgical changes and devices: None. Lungs and pleura: Lungs are clear. No pleural effusions or pneumothorax. Mediastinum: Mediastinal contours appear normal. Heart size is normal. Bones and chest wall: No suspicious bony lesions. Overlying soft tissues appear unremarkable. IMPRESSION: ECG Data Interpretation: Sinus Rhythm RBBB HR 83 MI 214 QRS [address]-t wave change MDM Narrative Medical decision making narrative: Vital signs, nurse triage note, medication list, previous ER visits, and all imaging studies reviewed. EKG shows sinus rhythm right bundle branch block heart rate 83 but no STT wave change. Chest x-ray showed no acute cardiopulmonary abnormality seen. Two sets troponin normal, BNP 62. Patient given Lasix 40 mg IV x1 with urine output over 1L. Differential diagnosis includes CHF, electrolyte derangement, dependent edema, will DC home on Lasix 40 mg for 2 more days and to follow up PCP in 1-2 weeks for re-evaluation. Discharge Plan Departure Patient Disposition: Home Clinical Impression: Lower extremity edema Instructions: DI for Peripheral Edema -- Bilateral Activity Restrictions/Additional Instructions: Return with new or worsening symptoms. Take your medicines directed. Follow up PCP in 1-2 weeks. Prescriptions: New furosemide [Lasix] 40 mg tablet 40 mg PO DAILY Qty: 2 0RF No Action metoprolol succinate 50 mg tablet extended release 24 hr 50 mg PO QAM Patient Comments: TAKE 1 TABLET BY MOUTH ONCE A DAY Referrals: Destini Cuello MD [Primary Care Provider, Family Practice] Stand Alone Forms: Patient Portal/API
--- NOTE | 2025-01-15 11:02 | DI.RAD.S_ITS ---
PROCEDURE: XR CHEST 1V INDICATIONS: Chest Pain TECHNIQUE: One view of the chest was acquired. COMPARISON: [facility], CR, XR CHEST 2V, 08/26/2023, 13:47. [facility], CR, XR CHEST 1V, 09/23/2020, 14:08. FINDINGS: Surgical changes and devices: None. Lungs and pleura: Lungs are clear. No pleural effusions or pneumothorax. Mediastinum: Mediastinal contours appear normal. Heart size is normal. Bones and chest wall: No suspicious bony lesions. Overlying soft tissues appear unremarkable. IMPRESSION: No acute cardiopulmonary abnormality is seen. Dictated by: Aristeo Alvarenga M.D. on 01/15/2025 at 11:55 Approved by: Aristeo Alvarenga M.D. on 01/15/2025 at 11:57
--- NOTE | 2025-01-15 11:02 | EKG_ITS ---
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
--- NOTE | 2025-01-15 11:04 | PC.NURSE ---
patient denies chest pain or shortness of breath.
[2025-01-15 11:09] LABS: Add Manual Diff / Slide Review NO; Hematocrit 48.9 % (41-53); Hemoglobin 17.2 g/dL (13.5-17.5); Lymphocytes Absolute Auto 1800 /uL (1100-4500); Mean Corpuscular HGB Conc 35.3 % (30-36); Mean Corpuscular Hemoglobin 32.4 PG (26-34); Mean Corpuscular Volume 92.0 fL (80-100); Platelet Count 184 X10^3/uL (150-400)
[2025-01-15 11:15] LABS: Alanine Aminotransferase 52 IU/L (<50); Albumin 4.9 g/dL (3.5-5.0); Albumin Globulin Ratio 1.4 (1.0-2.8); Alkaline Phosphatase 79 U/L (38-126); Blood Urea Nitrogen 10 mg/dL (9-20); Calcium 9.5 mg/dL (8.4-10.2); Carbon Dioxide 25 mmol/L (22-32); Chloride 102 mmol/L (98-107); Creatine Kinase 133 U/L (55-170); Estimated Glomerular Filt Rate > 60 mL/min (>60); Globulin 3.5 g/dL (1.7-4.1); Glucose 129 mg/dL (70-99); HEMOLYSIS 30 (0-50); Lipase 114 U/L (23-300); Magnesium 1.7 mg/dL (1.6-2.3); Potassium 3.5 mmol/L (3.4-5.1); Sodium 137 mmol/L (137-145); Total Protein 8.4 g/dL (6.3-8.2)
[2025-01-15 11:22] LABS: INR 1.1 (0.9-1.3); Prothrombin Time 12.0 SECONDS (9.4-12.5)
[2025-01-15 11:23] LABS: PTT Partial Thromboplastin Tim 34 SECONDS (25.1-36.5)
[2025-01-15] MEDS: FUROSEMIDE 40 MG/4 ML VIAL IV (11:25)
[2025-01-15 11:27] LABS: NT-proBNP (BNP-Adult 18+) 62 pg/mL (<125); Troponin I < 0.012 ng/mL (0.01-0.034)
--- NOTE | 2025-01-15 11:51 | EKG_ITS ---
[address] [address] Test Date: 2025-01-15 Pat Name: Venu Tavares Department: Room: Gender: Male Transcriber: LUIS ANTONIO : 1965 Requested By: Order Number: [id number] Reading MD: Jaya Sebastian MD Measurements Intervals [place] Rate: 95 P: 63 W[place]: 210 QRS: 250 QRSD: 142 T: 28 QT: 396 QTc: 497 Interpretive Statements Sinus rhythm with 1st degree AV block Right bundle branch block Inferior infarct , age undetermined NO SIGNIFICANT CHANGE FROM PRIOR TRACING Electronically Signed On 01-15-2025 14:19:55 PDT by Jaya Sebastian MD
--- NOTE | 2025-01-15 12:01 | PC.NURSE ---
Around 1145 patient is standing to urinate. EKG changes noted. This RN checks on patient. Patient reports feeling fine. Denies chest pain, denies SOB. Provider Lauro made aware and checks on patient. Repeat EKG ordered and done.
--- NOTE | 2025-01-15 13:33 | PC.NURSE ---
1331: Patient uses his call light. This RN checks on patient. He reports heartburn and requests Tums out of his pocket. This RN repositions patient upright. Patient Tums not given at this time. States it improves a bit. 2/10 epigastric discomfort. Patient also reports he was using chew. Provider Lauro made aware of patient complaints of heartburn. New verbal order for repeat EKG.
--- NOTE | 2025-01-15 13:41 | EKG_ITS ---
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
[2025-01-15 13:46] LABS: Troponin I < 0.012 ng/mL (0.01-0.034)
== END 2025-01-15 14:12 | disposition home or self-care (01) ==
PROVIDERS: Emergency Provider Family Medicine; PCP Family Medicine
DX: R60.0 Localized edema (principal); R07.9 Chest pain, unspecified
CPT/HCPCS: 36415; 71045; 80053; 82550; 83690; 83735; 83880; 84484; 85025; 85610; 85730; 93005; 93010; 96374; 99284; J1938